=== PATIENT | female | born 1980 | race Two or more races ===

== ENCOUNTER 2020-01-19 18:10 | Observation (INO) | payer OTHER, MEDICAID ==
[~2020-01-19] VITALS: Ht 165.1 cm; Wt 88.0 kg
== END 2020-01-19 21:45 | disposition home or self-care (01) | DRG 833 ==
LOC: LDRP 18:10
PROVIDERS: ADMIT Obstetrics & Gynecology; ATTEND Obstetrics & Gynecology
DX: O26.893 Other specified pregnancy related conditions, third trimester (principal); R10.9 Unspecified abdominal pain; Z3A.38 38 weeks gestation of pregnancy
CPT/HCPCS: 59025; 76805; 81002; G0378

== ENCOUNTER 2024-07-25 20:27 | Emergency (ER) | payer MEDICAID, OTHER ==
[~2024-07-25] VITALS: Ht 165.1 cm; Wt 76.4 kg
--- NOTE | 2024-07-25 21:48 | ED.PDOC ---
Eye-HPI HPI Comments 44 year old female presents to ER with bilateral eye complaint x 2 days. Patient states she started experiencing swelling/itching to bilateral eye lids and pain to bilateral eyes 2 days ago after applying eyelash glue and artificial lashes to bilateral eyelids with associated blurred vision and light sensitivity to bilateral eyes x 1 day. States she immediately removed the lashes and removed the eyelash glue at onset of symptoms and followed up with an urgent care provider yesterday and was prescribed a Medrol Dosepak, cetirizine and moxifloxacin eye drops that she has been using x1 day with little relief. She reports 5/10 pain to bilateral eyes and presents to ER ambulatory on arrival, with steady gait, in mild distress. Denies fever, headache, double vision, foreign body sensation to bilateral eyes, use of contacts/glasses or any further symptoms/complaints Chief Complaint: Eye Problem Time Seen by MD: 20:59 Primary Care Provider: UNKNOWN Reviewed Notes: Nurses Notes, Medications, Allergies Allergies: Coded Allergies: NO KNOWN ALLERGIES (Unverified , 01/19/20) Information Source: Patient Mode of Arrival: Ambulatory Past Medical History PAST MEDICAL HISTORY: Denies Surgical History: Appendectomy RESERVATION AGENT History: No Pertinent RESERVATION AGENT History Family History Family History: Unknown Social History Smoker: Non-Smoker Alcohol: Denies ETOH Use Drugs: Denies Drug Use Lives In: Home Constitutional: denies: chills, diaphoresis, fatigue, fever, malaise, sweats, weakness, others EENTM: reports: others (As stated in HPI) Respiratory: denies: cough, hemoptysis, orthopnea, SOB at rest, shortness of breath, SOB with excertion, stridor, wheezing, others Cardiovascular: denies: chest pain, dizzy spells, diaphoresis, Dyspnea on exertion, edema, irregular heart beat, left arm pain, lightheadedness, palpitations, PND, syncope, others Gastrointestinal: denies: abdomen distended, abdominal pain, blood streaked bowels, constipated, diarrhea, dysphagia, difficulty swallowing, hematemesis, melena, nausea, poor appetite, poor fluid intake, rectal bleeding, rectal pain, vomiting, others Genitourinary: denies: abnormal vagina bleeding, burning, dyspareunia, dysuria, flank pain, frequency, hematuria, incontinence, pain, , vagina discharge, urgency, others Neurological: denies: dizziness, fainting, headache, left sided numbness, left sided weakness, numbness, paresthesia, pre-existing deficit, right sided numbness, right sided weakness, seizure, speech problems, tingling, tremors, weakness, others Musculoskeletal: denies: back pain, gout, joint pain, joint swelling, muscle pain, muscle stiffness, neck pain, others Integumetry: reports: others (As stated in HPI) Allergic/Immunocompromised: reports: others (As stated in HPI) Hematologic/Lymphatic: denies: anemia, blood clots, easy bleeding, easy bruising, swollen glands, others Endocrine: denies: excessive hunger, excessive sweating, excessive thirst, excessive urination, flushing, intolerance to cold, intolerance to heat, unexplained weight gain, unexplained weight loss, others Psychiatric: denies: anxiety, bipolar disorder, depression, hopeless, panic disorder, schizophrenia, sleepless, suicidal, others Physical Exam General Appearance: Mild Distress (Due to eye irritation to eyes) HEENT: PERRL/EOMI, Pharynx Normal, TMs Normal, Other ([place] examination bilateral eyes- small corneal abrasions noted to bilateral eyes, R > L. Mild subconjunctival injection noted to bilateral eyes. No FB/corneal ulcer/eye drainage noted. Mild swelling noted to bilateral upper eyelids, no erythema/further skin changes noted) Neck: Full Range of Motion, Non-Tender, Normal Respiratory: Chest Non-Tender, Lungs Clear, No Accessory Muscle Use, No Respiratory Distress, Normal Breath Sounds Cardiovascular: No Murmur, No Gallop, Regular Rate/Rhythm Breast Exam: Deferred Gastrointestinal: NOT DONE Genitalia: Deferred Pelvic: Deferred Rectal: Deferred Extremities: Normal capillary refill, Normal range of motion Neurologic: Alert, No Motor Deficits, No Sensory Deficits Cerebellar Function: Normal Reflexes: Normal Skin: Dry, Normal Color, Warm Lymphatic: No Adenopathy Was a procedure done? Was a procedure done?: No Sedation Sedation?: No EENT DIFF Eye: Foreign Body-Corneal, Orbital Cellulits, Periorbital Cellulits X-Ray, Labs, Meds, VS Vital Signs Date Time Temp Pulse Resp B/P (MAP) Pulse Ox O2 Delivery O2 Flow Rate FiO2 07/25/24 22:06 98.4 78 20 119/78 (92) 98 98.4 07/25/24 22:06 78 18 98 Room Air 07/25/24 20:46 98.4 78 18 119/78 (80) 98 Current Medications Medications (Trade) Dose Ordered Sig/Adelaida Route Start Time Stop Time Status Last Admin Tetracaine HCl (Tetracaine 0.5% Opth Soln) 1 drop ONCE ONCE EACHEYE 07/25/24 21:45 07/25/24 21:46 DC 07/25/24 22:11 Fluorescein Sodium (Ful-Vanesa) 1 mg ONCE ONCE EACHEYE 07/25/24 21:45 07/25/24 21:46 DC 07/25/24 22:11 Fluorescein stain ophthalmic ordered Tetracaine ophthalmic ordered Advised to continue current medications as prescribed Advised to refrain from use of eyelash glue and artificial eyelashes Advised to follow up with PCP and Ophthalmology in 1-2 days Patient verbalized understanding and agreeable with current plan of care Advised to return to ER immediately if symptoms worsen Time of 1ST Reevaluation: 21:42 Reevaluation 1ST: N/A Patient Education/Counseling: Diagnosis, Treatment, Prognosis, Need For Follow Up Family Education/Counseling: No Family Present Departure 1 Departure Time of Disposition: 22:24 Impression: Primary Impression: Corneal abrasion of both eyes Qualified Codes: S05.01XA - Injury of conjunctiva and corneal abrasion w ithout foreign body, right eye, initial encounter; S05.02XA - Injury of conjunctiva and corneal abrasion without foreign body, left eye, initial encounter Additional Impression: Contact dermatitis Qualified Codes: L24.3 - Irritant contact dermatitis due to cosmetics Disposition: 01 HOME / SELF CARE / HOMELESS Condition: Stable Discharged With: Friend Critical Care Note Critical Care Time?: No Stability Stability form required: No Heart Score Heart Score: Heart Score Response (Comments) Value History N/A 0 EKG N/A 0 Age N/A 0 Risk Factors N/A 0 Troponin N/A 0 Total 0 CHAO JIMÉNEZ Jul 25, 2024 21:48
[2024-07-25 22:06] VITALS: BP 119/78; PULSE 78; RESP 18; TEMP 98.4; O2SAT 98
[2024-07-25] MEDS: TETRACAINE HCL 0.5% OPTH(EYE) SOLN 4ML EACHEYE ONE (22:11)
[2024-07-25] MEDS: FLUORESCEIN SOD OPTH TEST STRIP EACHEYE ONE (22:11)
== END 2024-07-25 23:01 | disposition home or self-care (01) ==
LOC: ER 20:27
DX: S05.02XA Injury of conjunctiva and corneal abrasion without foreign body, left eye, initial encounter (principal); S05.01XA Injury of conjunctiva and corneal abrasion without foreign body, right eye, initial encounter; Z90.49 Acquired absence of other specified parts of digestive tract; X58.XXXA Exposure to other specified factors, initial encounter; Y93.89 Activity, other specified; Y92.89 Other specified places as the place of occurrence of the external cause; Y99.8 Other external cause status; L25.9 Unspecified contact dermatitis, unspecified cause